=== PATIENT | female | born 1975 | race Caucasian/White ===

== ENCOUNTER 2016-08-23 16:11 | Emergency (ER) | payer BC ==
[~2016-08-23] VITALS: Ht 182.9 cm; Wt 110.0 kg
[2016-08-23 19:18] VITALS: BP 150/92
== END 2016-08-23 19:18 | disposition home or self-care (01) ==
LOC: EME 16:11
DX: S86.211A Strain of muscle(s) and tendon(s) of anterior muscle group at lower leg level, right leg, initial encounter (principal)
CPT/HCPCS: 93971; 99281; 99283